=== PATIENT | male | born 1935 | race Hispanic/Latino ===

== ENCOUNTER 2017-09-26 20:37 | Emergency (ER) | payer MEDICARE ==
[2017-09-26] MEDS ORDERED: LIDOCAINE HCL 2% VISCOUS 15 ML UDCUP ONE (21:33)
[2017-09-26] MEDS ORDERED: ACETAMINOPHEN-CODEINE ELIXIR 5 ML UDCUP ONE (21:33)
[2017-09-26] MEDS ORDERED: MAG HYDROX/AL HYDROX/SIMETH ES 30 ML SUSP UDCUP ONE (21:33)
[2017-09-26 22:00] LABS: BASOPHILS % (AUTO) 2.7 % (0.0-5.0); EOSINOPHILS % (AUTO) 0.2 % (0.0-8.0); HEMATOCRIT 28.9 % (42-54); LYMPHOCYTES % (AUTO) 10.9 % (21.0-51.0); MEAN CORPUSCULAR HEMOGLOBIN 38.7 pg (27.0-33.0); MEAN CORPUSCULAR HGB CONC 34.1 g/dL (32.0-36.0); MEAN CORPUSCULAR VOLUME 113.5 fL (79-99); MONOCYTES % (AUTO) 7.4 % (3.0-13.0); NEUTROPHILS % (AUTO) 78.8 % (40.0-77.0); NUCLEATED RED BLOOD CELLS 0.2 % (0.0-0.19); PLATELET COUNT (AUTO) 346 K/uL (130-400); RED BLOOD CELL COUNT(AUTO) 2.54 MIL/uL (4.50-6.20); RED CELL DISTRIBUTION WIDTH 20.8 % (11.0-15.5); WHITE BLOOD COUNT (AUTO) 5.2 K/uL (4.8-10.8)
[2017-09-26 22:08] LABS: CREATININE 0.8 mg/dL (0.5-1.5); POTASSIUM 4.4 mmol/L (3.5-5.1)
[2017-09-26 22:12] LABS: ALBUMIN 3.8 g/dL (3.5-5.0); BILIRUBIN,TOTAL 0.9 mg/dL (0.2-1.0); TOTAL PROTEIN, SERUM 7.6 g/dL (6.0-8.3)
== END 2017-09-26 22:55 | disposition home or self-care (01) ==
LOC: EDH 20:37
DX: K52.9 Noninfective gastroenteritis and colitis, unspecified (principal); Z85.46 Personal history of malignant neoplasm of prostate; Z88.0 Allergy status to penicillin
CPT/HCPCS: 36415; 80053; 85025; 93005

== ENCOUNTER 2017-10-28 10:57 | Emergency (ER) | payer MEDICARE ==
[2017-10-28] MEDS ORDERED: DiphenhydrAMINE HCL 50 MG/ML VIAL ONE (11:54)
[2017-10-28] MEDS ORDERED: DEXAMETHASONE SOD PHOSPHATE 10MG/ML 1ML VIAL ONE (11:54)
== END 2017-10-28 12:52 | disposition home or self-care (01) ==
LOC: EDH 10:57
DX: N48.22 Cellulitis of corpus cavernosum and penis (principal); Z88.0 Allergy status to penicillin; Z85.46 Personal history of malignant neoplasm of prostate; Z87.891 Personal history of nicotine dependence
CPT/HCPCS: 96372 ×2; 99284; J1100; J1200

== ENCOUNTER 2018-01-07 07:14 | Day surgery (SDC) | payer MEDICARE ==
[2018-01-05 16:21] VITALS: BP 113/61
[2018-01-05 16:22] LABS: BASOPHILS % (AUTO) 2.1 % (0.0-5.0); EOSINOPHILS % (AUTO) 1.7 % (0.0-8.0); HEMATOCRIT 24.8 % (42-54); LYMPHOCYTES % (AUTO) 31.4 % (21.0-51.0); MEAN CORPUSCULAR HEMOGLOBIN 37.8 pg (27.0-33.0); MEAN CORPUSCULAR HGB CONC 33.7 g/dL (32.0-36.0); MEAN CORPUSCULAR VOLUME 112.2 fL (79-99); NEUTROPHILS % (AUTO) 56.8 % (40.0-77.0); NUCLEATED RED BLOOD CELLS 0.2 % (0.0-0.19); PLATELET COUNT (AUTO) 280 K/uL (130-400); RED BLOOD CELL COUNT(AUTO) 2.21 MIL/uL (4.50-6.20); RED CELL DISTRIBUTION WIDTH 22.2 % (11.0-15.5); WHITE BLOOD COUNT (AUTO) 4.3 K/uL (4.8-10.8)
[2018-01-05 16:33] LABS: CREATININE 0.8 mg/dL (0.5-1.5); POTASSIUM 4.5 mmol/L (3.5-5.1)
[~2018-01-07] VITALS: Ht 170.2 cm; Wt 74.6 kg
[2018-01-07] VITALS (16 sets, daily range): BP systolic 108–141; BP diastolic 60–77
[2018-01-07] MEDS ORDERED: LACTATED RINGERS 1000ML 1,000 ML IV ONE (07:43)
[2018-01-07] MEDS ORDERED: LEVOFLOXACIN 500 MG/D5W 100 ML 100 ML ONE (07:44)
[2018-01-07] MEDS ORDERED: FENTANYL CITRATE PF 50 MCG/1 ML 2ML VIAL ONE (09:09)
[2018-01-07] MEDS ORDERED: PROPOFOL 10 MG/ML 20ML VIAL IV ONE (09:09)
[2018-01-07] MEDS ORDERED: LIDOCAINE PF 2% 5ML ABBOJECT ONE (09:09)
[2018-01-07] MEDS ORDERED: GLYCOPYRROLATE 1 MG/5 ML SYRINGE ONE (09:18)
[2018-01-07] MEDS ORDERED: LIDOCAINE HCL MPF 1% 5ML VIAL ONE (09:26)
[2018-01-07] MEDS ORDERED: BUPIVACAINE/PF 0.5% 30ML VIAL ONE (09:26)
[2018-01-07] MEDS ORDERED: BACITRACIN 28.4 GM OINT TP ONE (09:39)
== END 2018-01-07 12:04 | disposition home or self-care (01) ==
LOC: DAH 07:14 → SUH 07:14
PROVIDERS: ATTEND Urology
DX: N47.1 Phimosis (principal); Z85.46 Personal history of malignant neoplasm of prostate; Z90.49 Acquired absence of other specified parts of digestive tract; Z98.49 Cataract extraction status, unspecified eye; Z87.891 Personal history of nicotine dependence; Z98.890 Other specified postprocedural states; Z79.899 Other long term (current) drug therapy; Z88.0 Allergy status to penicillin
CPT/HCPCS: 36415; 54161; 80048; 85025; 88304; A4510; A4600; J1956; J2001; J2704; J3010; J3490 ×3; J7120

== ENCOUNTER 2019-02-24 11:29 | Inpatient (IN) | payer MEDICARE ==
[~2019-02-24] VITALS: Ht 172.7 cm; Wt 75.2 kg
[2019-02-24] MEDS ORDERED: LEVOFLOXACIN 500 MG/D5W 100 ML 100 ML IV ONE (13:00)
[2019-02-24] MEDS ORDERED: PHARMACY COMMUNICATION MISC SCH ×2 (13:00→15:45)
[2019-02-24] MEDS ORDERED: VANCOMYCIN 1GM+NS 250ML 250 ML IV SCH ×2 (13:00→14:00)
[2019-02-24] MEDS ORDERED: SODIUM CHLORIDE 0.9% 1000ML 1,000 ML IV ONE (13:19)
[2019-02-24 14:15] VITALS: BP 96/51
[2019-02-24 15:39] LABS: BASOPHILS % (AUTO) 0.3 % (0.0-5.0); HEMATOCRIT 21.6 % (42-54); LYMPHOCYTES % (AUTO) 0.9 % (21.0-51.0); MEAN CORPUSCULAR HEMOGLOBIN 35.6 pg (27.0-33.0); MEAN CORPUSCULAR HGB CONC 32.2 g/dL (32.0-36.0); MEAN CORPUSCULAR VOLUME 110.8 fL (79-99); MONOCYTES % (AUTO) 2.2 % (3.0-13.0); NEUTROPHILS % (AUTO) 96.6 % (40.0-77.0); PLATELET COUNT (AUTO) 208 K/uL (130-400); RED BLOOD CELL COUNT(AUTO) 1.95 MIL/uL (4.50-6.20); RED CELL DISTRIBUTION WIDTH 21.3 % (11.0-15.5); WHITE BLOOD COUNT (AUTO) 24.9 K/uL (4.8-10.8)
[2019-02-24] MEDS ORDERED: VANCOMYCIN PROTOCOL PER PHARMACY IV SCH (15:45)
[2019-02-24 16:00] VITALS: BP 103/48
[2019-02-24 16:11] LABS: CREATININE 1.9 mg/dL (0.5-1.5); POTASSIUM 4.6 mmol/L (3.5-5.1)
[2019-02-24 16:16] LABS: ALBUMIN 2.8 g/dL (3.5-5.0); BILIRUBIN,TOTAL 1.4 mg/dL (0.2-1.0); TOTAL PROTEIN, SERUM 5.6 g/dL (6.0-8.3)
[2019-02-24] MEDS ORDERED: LEVOFLOXACIN 750 MG/D5W 150 ML 150 ML IV SCH ×2 (16:30)
[2019-02-24] MEDS ORDERED: ACETAMINOPHEN 325 MG TAB PO PRN (16:45)
[2019-02-24] MEDS ORDERED: COMPOUND IV REFRIGERATED 1 EACH IVSOLN MISC PRN (16:45)
--- NOTE | 2019-02-24 17:22 | NUR ---
INITIAL MET W FAMILY AND PATIENT- DAUGHTER DORA AND JEWELL LANDERS, HER NUMBER IS ON FACE SHEET, UPDATED PHONE NUMBER OF [facility] AND SENT TO REGISTRATION. PT USES A CANE AND A ROLLATOR, HAS A SHOWER CHAIR, NO PROVIDER SERVICES, HAS A HANDCAPPED BATHROOM PUT IN A FEW YEARS AGO, CURRENTLY WITH ISSUES- FAMILY VERY UPSET ABOUT THE BATHROOM REPAIRS THAT ARE PENDING PT HAS PROSTATE CANCER FOR 20 YEARS- FOLLOWED BY DR. DUMONT, SEES DR. CASH, IS HERE FOR SEPSIS, DC PLANNING DISCUSSED, WILL FOLLOW Addendum: 02/24/19 at 1814 by JIA ROBLEDO RN CM Amended: Links added.
[2019-02-24] MEDS: ACETAMINOPHEN 325 MG TAB PO PRN (17:42)
[2019-02-24] MEDS ORDERED: VANCOMYCIN 1.5 GM in SODIUM CHLORIDE 0.9% 250 ML IV SCH (18:00)
[2019-02-24 19:14] LABS: APPEARANCE,URINE CLOUDY (CLEAR); BILIRUBIN,URINE NEGATIVE (NEGATIVE); COLOR,URINE YELLOW (YELLOW); GLUCOSE, URINE (UA) NEGATIVE (NEGATIVE); KETONES,URINE NEGATIVE (NEGATIVE); LEUKOCYTE ESTERASE ,URINE MODERATE (NEGATIVE); NITRATE,URINE NEGATIVE (NEGATIVE); OCCULT BLOOD,URINE LARGE (NEGATIVE); PROTEIN,URINE 30 mg/dL (NEGATIVE); UROBILINOGEN,URINE 0.2 mg/dL (0.2-1.0)
[2019-02-24 19:24] LABS: BACTERIA,URINE Moderate /HPF (None Seen); MUCUS,URINE Moderate LPF (None Seen)
[2019-02-24 19:25] VITALS: BP 88/67
--- NOTE | 2019-02-24 19:40 | NUR ---
Nursing Note Spoke with lab to see if blood is ready for the pt. Lab stated there is no order in the computer for blood just the type and screen. Kaci KLINE put order in before she left.
[2019-02-24] MEDS ORDERED: SODIUM CHLORIDE 0.9% 500ML 500 ML IV ONE (20:04)
--- NOTE | 2019-02-24 21:00 | NUR ---
Nursing Note Spoke with lab, blood is not ready yet.
--- NOTE | 2019-02-24 21:12 | NUR ---
Nursing Note Informed Dr. Lowery that pt's lactic Acid came down to 2.4. Also informed him that the pt is having diarrhea from the antibiotic. Also informed him that I was still waiting for the blood to be ready to give to the pt. Was given a order for Imodium 2mg now. No other orders at this time.
[2019-02-24] MEDS ORDERED: LOPERAMIDE HCL 2 MG CAP PO ONE (21:28)
[2019-02-24] MEDS: LOPERAMIDE HCL 2 MG CAP PO SCH (21:30)
[2019-02-24] MEDS: SODIUM CHLORIDE 0.9% 1000ML 1,000 ML IV SCH (21:32)
--- NOTE | 2019-02-24 21:40 | NUR ---
nursing note lab stated blood is not ready, they will call when blood is ready
--- NOTE | 2019-02-24 23:00 | NUR ---
nursing note 0253 Called lab they stated blood is ready. Went down to get the blood upon arrival in lab they informed me I needed a blood warmer to give the blood. Got a blood warmer and set up at 2300.
--- NOTE | 2019-02-24 23:00 | NUR ---
NURSING NOTE Pt has had a slight fever. Informed the pt that he needs to take the blankets off of himself but pt continues to put blankets on and turn temperature up in room.
[2019-02-24 23:39] VITALS: BP 86/45
--- NOTE | 2019-02-24 23:45 | NUR ---
NURSING NOTE blood started on pt at 2330. Pt denies any complications at this time. vital signs and pt are being monitored.
--- NOTE | 2019-02-25 | NUR ---
NURSING NOTE pt family member arrived to floor at 2350. pt family member stated "the blood needs to be stopped because the he is swollen." There is no noticeable pt change with my assessment and confirmed with [employer]. Also spoke with pt and pt stated he is fine. Vitals area also constantly stable. Family member is adamant about stopping the blood and calling the doctor. I paused the blood and called the doctor. Spoke with Dr. Lowery at 2355 and informed him of the situation and of all of pt's vitals. He stated to inform the family member that if Dr. Wilkes want's he can start the pt on Lasix but at this time pt vitals are too low but we need to give him the blood. Also stated that it is not up to her to stop the blood and if pt wants to continue then we will continue. I informed the pt and the family member and restarted the blood at 0000.
[2019-02-25] MEDS: ACETAMINOPHEN 325 MG TAB PO PRN ×3 (03:06→19:19)
[2019-02-25 03:20] VITALS: BP 103/46
--- NOTE | 2019-02-25 04:00 | NUR ---
NURSING NOTE Transfusion stopped at 0340. Pt vomiting, pt has continued to have chills but the fever has come down to 100. Spoke with Dr. Lowery informed him of the pt's recent reaction and that I stopped the transfusion. He stated he didn't think it was a transfusion reaction but to stop the transfusion and do the transfusion reaction protocol.
--- NOTE | 2019-02-25 04:05 | NUR ---
NURSING NOTE Informed lab about the reaction and pack blood up in bag. Bag taken down to lab with blood. Pending urine sample from pt at this point.
--- NOTE | 2019-02-25 05:00 | NUR ---
NURSING NOTE pt lying in bed resting. No nausea/vomiting or chills. Pt stated "I'm just sleepy and you wont let me sleep"
[2019-02-25] MEDS ORDERED: CEFEPIME HCL 2 GM VIAL IVP SCH (06:00)
[2019-02-25 08:00] VITALS: BP 85/45
[2019-02-25] MEDS: CEFEPIME HCL 2 GM VIAL IVP SCH ×2 (09:13→16:31)
[2019-02-25] MEDS: FAMOTIDINE/PF 20 MG/2 ML VIAL IV SCH (09:13)
[2019-02-25 09:47] LABS: HEMATOCRIT 23.7 % (42-54); MEAN CORPUSCULAR HGB CONC 33.6 g/dL (32.0-36.0); MEAN CORPUSCULAR VOLUME 107.2 fL (79-99); PLATELET COUNT (AUTO) 129 K/uL (130-400); RED BLOOD CELL COUNT(AUTO) 2.21 MIL/uL (4.50-6.20); RED CELL DISTRIBUTION WIDTH 22.6 % (11.0-15.5); WHITE BLOOD COUNT (AUTO) 10.5 K/uL (4.8-10.8)
[2019-02-25 10:28] LABS: CREATININE 1.6 mg/dL (0.5-1.5); POTASSIUM 4.6 mmol/L (3.5-5.1)
[2019-02-25 11:00] VITALS: BP 72/34
[2019-02-25] MEDS ORDERED: LEVOFLOXACIN 500 MG/D5W 100 ML 100 ML IV SCH (13:00)
[2019-02-25 16:00] VITALS: BP 105/59
[2019-02-25] MEDS: VANCOMYCIN 1GM+NS 250ML 250 ML IV SCH (18:29)
[2019-02-25] MEDS: SODIUM CHLORIDE 0.9% 1000ML 1,000 ML IV SCH ×2 (18:45→20:03)
[2019-02-25 19:42] VITALS: BP 96/56
[2019-02-25] MEDS: LOPERAMIDE HCL 2 MG CAP PO SCH (20:47)
[2019-02-25 23:58] VITALS: BP 104/53
[2019-02-26] MEDS: CEFEPIME HCL 2 GM VIAL IVP SCH ×3 (00:18→17:03)
[2019-02-26 03:19] VITALS: BP 96/56
[2019-02-26] MEDS: SODIUM CHLORIDE 0.9% 1000ML 1,000 ML IV SCH ×2 (04:10→14:45)
[2019-02-26 07:30] VITALS: BP 105/63
[2019-02-26] MEDS: FAMOTIDINE/PF 20 MG/2 ML VIAL IV SCH (08:45)
[2019-02-26 08:54] LABS: HEMATOCRIT 24.4 % (42-54); MEAN CORPUSCULAR HEMOGLOBIN 35.7 pg (27.0-33.0); MEAN CORPUSCULAR HGB CONC 33.3 g/dL (32.0-36.0); MEAN CORPUSCULAR VOLUME 107.3 fL (79-99); PLATELET COUNT (AUTO) 132 K/uL (130-400); RED BLOOD CELL COUNT(AUTO) 2.27 MIL/uL (4.50-6.20); RED CELL DISTRIBUTION WIDTH 22.7 % (11.0-15.5); WHITE BLOOD COUNT (AUTO) 6.7 K/uL (4.8-10.8)
[2019-02-26 09:14] LABS: CREATININE 0.9 mg/dL (0.5-1.5); POTASSIUM 3.9 mmol/L (3.5-5.1)
[2019-02-26] MEDS: ACETAMINOPHEN 325 MG TAB PO PRN (09:20)
[2019-02-26 11:00] VITALS: BP 105/56
[2019-02-26 16:00] VITALS: BP 112/61
[2019-02-26] MEDS: VANCOMYCIN 1GM+NS 250ML 250 ML IV SCH (18:38)
[2019-02-26 19:10] VITALS: BP 105/64
[2019-02-26] MEDS ORDERED: VANCOMYCIN 1GM+NS 250ML 250 ML IV SCH (20:00)
[2019-02-26 23:20] VITALS: BP 118/64
[2019-02-27] MEDS: CEFEPIME HCL 2 GM VIAL IVP SCH ×2 (01:52→08:54)
[2019-02-27] MEDS: ACETAMINOPHEN 325 MG TAB PO PRN (03:05)
[2019-02-27 03:23] VITALS: BP 110/67
[2019-02-27 07:46] VITALS: BP 117/66
[2019-02-27] MEDS: FAMOTIDINE/PF 20 MG/2 ML VIAL IV SCH (08:54)
[2019-02-27] MEDS: SODIUM CHLORIDE 0.9% 1000ML 1,000 ML IV SCH (08:54)
--- NOTE | 2019-02-27 11:00 | NUR ---
PATIENT GIVEN DISCHARGE INSTRUCTIONS AND EDUCATION ON FOLLOW UP APPOINTMENTS. NEW PRESCRIPTIONS CALLED IN BY DR DUMONT. PATIENT VERBALIZED UNDERSTANDING OF ALL EDUCATION GIVEN VIA TEACH BACK. IV DISCONTINUED, CATHETER INTACT. PATIENT LEFT VIA WHEELCHAIR, PCP AT SIDE. NO DISTRESS NOTED UPON DISCHARGE. ALL BELONGINGS TAKEN WITH.
[2019-02-27 11:02] VITALS: BP 113/70
== END 2019-02-27 12:43 | disposition home or self-care (01) | DRG 872 ==
LOC: EDH 11:29 → EDHIP 12:31 → 4CH 14:11
PROVIDERS: ADMIT Internal Medicine Hematology & Oncology; ATTEND Internal Medicine Hematology & Oncology
PROC: 30233N1 Transfusion of Nonautologous Red Blood Cells into Peripheral Vein, Percutaneous Approach (ICD-10-PCS; principal; 2019-02-24)
DX: A41.9 Sepsis, unspecified organism (principal); C79.9 Secondary malignant neoplasm of unspecified site; N39.0 Urinary tract infection, site not specified; C61 Malignant neoplasm of prostate; E86.0 Dehydration; D46.9 Myelodysplastic syndrome, unspecified; D89.9 Disorder involving the immune mechanism, unspecified; F17.200 Nicotine dependence, unspecified, uncomplicated; Z80.42 Family history of malignant neoplasm of prostate; Z82.49 Family history of ischemic heart disease and other diseases of the circulatory system; Z85.46 Personal history of malignant neoplasm of prostate; M19.90 Unspecified osteoarthritis, unspecified site; G62.9 Polyneuropathy, unspecified; Z90.49 Acquired absence of other specified parts of digestive tract; Z98.49 Cataract extraction status, unspecified eye
CPT/HCPCS: 36415; 36430; 71046; 80048; 80053; 80202; 81001; 83605; 85025; 85027; 86078; 86156; 86850; 86870; 86900; 86901; 86922; 87040; 87088; G0378; J0692; J1956; J3370; J3490; J7030; J7040; P9016

== ENCOUNTER 2019-04-22 23:28 | Emergency (ER) | payer MEDICARE ==
[2019-04-23 00:18] LABS: CREATININE 0.3 mg/dL (0.5-1.5); POTASSIUM 4.1 mmol/L (3.5-5.1)
[2019-04-23 00:22] LABS: ALBUMIN 4.1 g/dL (3.5-5.0); BILIRUBIN,TOTAL 1.2 mg/dL (0.2-1.0); TOTAL PROTEIN, SERUM 7.2 g/dL (6.0-8.3)
[2019-04-23] MEDS ORDERED: KETOROLAC TROMETHAMINE 15MG/ML ONE (00:37)
[2019-04-23 00:40] LABS: BASOPHILS % (AUTO) 0.3 % (0.0-5.0); EOSINOPHILS % (AUTO) 0.8 % (0.0-8.0); HEMATOCRIT 28.3 % (42-54); LYMPHOCYTES % (AUTO) 14.5 % (21.0-51.0); MEAN CORPUSCULAR HGB CONC 32.5 g/dL (32.0-36.0); MEAN CORPUSCULAR VOLUME 101.4 fL (79-99); MONOCYTES % (AUTO) 8.4 % (3.0-13.0); NEUTROPHILS % (AUTO) 75.5 % (40.0-77.0); PLATELET COUNT (AUTO) 300 K/uL (130-400); RED BLOOD CELL COUNT(AUTO) 2.79 MIL/uL (4.50-6.20); RED CELL DISTRIBUTION WIDTH 19.2 % (11.0-15.5); WHITE BLOOD COUNT (AUTO) 6.6 K/uL (4.8-10.8)
[2019-04-23 00:55] LABS: INR 0.97 (0.85-1.15); PARTIAL THROMBOPLASTIN TIME 22.2 SEC (26.3-35.5); PROTHROMBIN TIME 10.2 SEC (9.6-11.6)
[2019-04-23 01:43] LABS: APPEARANCE,URINE Clear (CLEAR); BILIRUBIN,URINE Negative (NEGATIVE); COLOR,URINE Yellow (YELLOW); GLUCOSE, URINE (UA) Negative (NEGATIVE); KETONES,URINE Negative (NEGATIVE); LEUKOCYTE ESTERASE ,URINE Negative (NEGATIVE); NITRATE,URINE Negative (NEGATIVE); OCCULT BLOOD,URINE Negative (NEGATIVE); PROTEIN,URINE Negative (NEGATIVE)
[2019-04-23] MEDS ORDERED: TAMSULOSIN HCL 0.4 MG CAP.ER.24H ONE (02:41)
[2019-04-23] MEDS ORDERED: SODIUM CHLORIDE 0.9% 1000ML 1,000 ML IV ONE (02:41)
== END 2019-04-23 04:20 | disposition home or self-care (01) ==
LOC: EDH 23:28
DX: N13.2 Hydronephrosis with renal and ureteral calculous obstruction (principal); D64.9 Anemia, unspecified; M54.5 Low back pain; Z88.0 Allergy status to penicillin; Z85.46 Personal history of malignant neoplasm of prostate; Z90.49 Acquired absence of other specified parts of digestive tract; Z87.891 Personal history of nicotine dependence
CPT/HCPCS: 36415; 71045; 74176; 80053; 81003; 82150; 82550; 83690; 84484; 85025; 85610; 85730; 93005; 96361; 96374; 99285; J1885; J7030

== ENCOUNTER → 2019-10-25 | Outpatient (CLI) | payer MEDICARE | END | disposition home or self-care (01) | LOC: RAH 07:30 | PROVIDERS: ATTEND Internal Medicine Hematology & Oncology | DX: R10.11 Right upper quadrant pain (principal); Z90.49 Acquired absence of other specified parts of digestive tract | CPT/HCPCS: 76700 ==

== ENCOUNTER 2021-09-01 12:00 | Inpatient (IN) | payer MEDICARE ==
[~2021-09-01] VITALS: Ht 165.1 cm; Wt 65.4 kg
[2021-09-01 13:52] LABS: BASOPHILS % (AUTO) 0.9 % (0.0-5.0); EOSINOPHILS % (AUTO) 1.8 % (0.0-8.0); HEMATOCRIT 31.5 % (42-54); LYMPHOCYTES % (AUTO) 33.8 % (21.0-51.0); MEAN CORPUSCULAR HEMOGLOBIN 32.9 pg (27.0-33.0); MEAN CORPUSCULAR HGB CONC 32.4 g/dL (32.0-36.0); MEAN CORPUSCULAR VOLUME 101.6 fL (79-99); MONOCYTES % (AUTO) 12.6 % (3.0-13.0); NEUTROPHILS % (AUTO) 49.6 % (40.0-77.0); PLATELET COUNT (AUTO) 284 K/uL (130-400); RED CELL DISTRIBUTION WIDTH 19.9 % (11.0-15.5); WHITE BLOOD COUNT (AUTO) 4.5 K/uL (4.8-10.8)
[2021-09-01 13:59] LABS: CREATININE 0.6 mg/dL (0.5-1.5); POTASSIUM 4.4 mmol/L (3.5-5.1)
[2021-09-01 14:33] LABS: PROTHROMBIN TIME 10.9 SEC (9.6-11.6)
[2021-09-01 14:35] LABS: PARTIAL THROMBOPLASTIN TIME 29.1 SEC (26.3-35.5)
[2021-09-02] MEDS ORDERED: ACET-66 PO (10:34)
[2021-09-02] MEDS ORDERED: LEVOFLOXACIN 750 MG/D5W 150 ML 150 ML IV SCH (11:30)
[2021-09-03] VITALS (17 sets, daily range): BP systolic 108–152; BP diastolic 63–81
[2021-09-03] MEDS ORDERED: LACTATED RINGERS 1000ML 1,000 ML IV ONE (08:20)
[2021-09-03] MEDS ORDERED: PROPOFOL 10 MG/ML 20ML VIAL IV ONE (08:36)
[2021-09-03] MEDS ORDERED: ROCURONIUM 10MG/1ML SYR 10 MG/ML ML ONE (08:36)
[2021-09-03] MEDS ORDERED: GLYCOPYRROLATE 1 MG/5 ML SYRINGE ONE (08:36)
[2021-09-03] MEDS ORDERED: LIDOCAINE PF 100MG/5ML (2%) SYRINGE 5ML ONE (08:36)
[2021-09-03] MEDS: METRONIDAZOLE 500MG/100ML BAG 100 ML IVPB SCH ×3 (09:00→23:30)
[2021-09-03] MEDS ORDERED: FAMOTIDINE 20MG VIAL IV ONE (09:42)
[2021-09-03] MEDS ORDERED: MORPHINE 2 MG SYG ONE (09:43)
[2021-09-03] MEDS ORDERED: AMIT10TA7 PO (10:11)
[2021-09-03] MEDS ORDERED: LEUP22.52 IM (10:11)
[2021-09-03] MEDS ORDERED: CYCLOBENZAPRINE PO (10:11)
[2021-09-03] MEDS ORDERED: BICA50TA7 PO (10:11)
[2021-09-03] MEDS ORDERED: [UNRECOGNIZED DRUG - CODE] IJ (10:11)
[2021-09-03] MEDS ORDERED: FENTANYL CITRATE PF 50 MCG/1 ML 2ML VIAL ONE ×3 (10:16→11:15)
[2021-09-03] MEDS ORDERED: ONDANSETRON 4MG INJ ONE (10:20)
[2021-09-03] MEDS ORDERED: METOPROLOL TARTRATE 1 MG/ML 5ML VIAL IV ONE (10:43)
[2021-09-03] MEDS ORDERED: LIDOCAINE HCL 1% 20 ML VIAL ONE (13:11)
[2021-09-03] MEDS ORDERED: BUPIVACAINE/EPI/PF 0.5% 30ML VIAL IJ ONE (13:11)
[2021-09-03] MEDS ORDERED: NEOSTIGMINE 5MG/5ML SYR IV ONE (13:22)
[2021-09-03] MEDS ORDERED: MEPERIDINE-PF 25 MG/ML SYG ONE ×2 (14:06→14:15)
[2021-09-03] MEDS: HYDROMORPHONE 0.5 MG SYG (0.5MG/0.5ML) IVP PRN (16:15)
[2021-09-03] MEDS: KETOROLAC 15MG/ML VIAL (15MG/ML) IV SCH ×2 (17:22→23:30)
[2021-09-03] MEDS: D5W-1/2 NS/20MEQ KCL 1,000 ML IV SCH (18:20)
[2021-09-03] MEDS ORDERED: ONDANSETRON 4MG INJ IVP PRN (19:30)
[2021-09-03] MEDS ORDERED: IPRATROPIUM 0.5 MG/2.5 ML INH IH PRN (20:30)
[2021-09-03] MEDS: FAMOTIDINE 20MG VIAL IV SCH (23:30)
[2021-09-04] VITALS: BP 109/74
[2021-09-04] MEDS: HYDROMORPHONE 0.5 MG SYG (0.5MG/0.5ML) IVP PRN ×3 (03:31→21:14)
[2021-09-04] MEDS: D5W-1/2 NS/20MEQ KCL 1,000 ML IV SCH (03:32)
[2021-09-04 05:25] LABS: BASOPHILS % (AUTO) 0.2 % (0.0-5.0); HEMATOCRIT 26.2 % (42-54); LYMPHOCYTES % (AUTO) 3.6 % (21.0-51.0); MEAN CORPUSCULAR HEMOGLOBIN 31.3 pg (27.0-33.0); MEAN CORPUSCULAR HGB CONC 31.3 g/dL (32.0-36.0); MONOCYTES % (AUTO) 11.7 % (3.0-13.0); NEUTROPHILS % (AUTO) 83.1 % (40.0-77.0); NUCLEATED RED BLOOD CELLS 0.2 % (0.0-0.19); PLATELET COUNT (AUTO) 286 K/uL (130-400); RED BLOOD CELL COUNT(AUTO) 2.62 MIL/uL (4.50-6.20); RED CELL DISTRIBUTION WIDTH 19.2 % (11.0-15.5); WHITE BLOOD COUNT (AUTO) 18.7 K/uL (4.8-10.8)
[2021-09-04] MEDS: METRONIDAZOLE 500MG/100ML BAG 100 ML IVPB SCH ×3 (05:41→21:04)
[2021-09-04] MEDS: KETOROLAC 15MG/ML VIAL (15MG/ML) IV SCH (05:42)
[2021-09-04 05:52] LABS: BILIRUBIN,TOTAL 1.4 mg/dL (0.2-1.0); CREATININE 1.6 mg/dL (0.5-1.5); MAGNESIUM 1.6 mg/dL (1.80-2.40); POTASSIUM 5.6 mmol/L (3.5-5.1); TOTAL PROTEIN, SERUM 6.4 g/dL (6.0-8.3)
[2021-09-04 07:30] VITALS: BP 100/74
[2021-09-04] MEDS: FAMOTIDINE 20MG VIAL IV SCH ×2 (08:05→21:04)
[2021-09-04] MEDS: ENOXAPARIN SODIUM 30 MG/0.3 ML SQ SCH (08:11)
[2021-09-04] MEDS: IODOSORB GEL 40GM TP SCH (09:00)
[2021-09-04 09:20] LABS: CREATININE 1.7 mg/dL (0.5-1.5)
[2021-09-04 09:25] LABS: POTASSIUM 6.1 mmol/L (3.5-5.1)
[2021-09-04] MEDS ORDERED: LEVOFLOXACIN 750 MG/D5W 150 ML 150 ML IV SCH (10:00)
[2021-09-04] MEDS ORDERED: DEXTROSE 50%-WATER 50 ML DISP.SYRIN IV SCH (10:00)
[2021-09-04] MEDS ORDERED: INSULIN HUMULIN R 100 UNIT/ML 3ML IV SCH (10:00)
[2021-09-04] MEDS ORDERED: CALCIUM GLUC 1GM/10ML VIAL IVPB SCH (10:00)
[2021-09-04] MEDS ORDERED: SODIUM BICARB 50MEQ 50ML VIAL IV SCH (10:00)
[2021-09-04] MEDS: DEXTROSE 5 % AND 0.9 % NACL 1,000 ML IV SCH ×2 (10:23→23:47)
[2021-09-04] MEDS ORDERED: CALCIUM GLUC 1GM 1 GM in 0.9%NACL 100ML 100 ML IV SCH (10:30)
[2021-09-04 11:00] VITALS: BP 110/62
[2021-09-04] MEDS: LEVOFLOXACIN 750 MG/D5W 150 ML 150 ML IV SCH (11:37)
[2021-09-04 13:24] LABS: CREATININE 1.7 mg/dL (0.5-1.5)
[2021-09-04 13:43] LABS: % IRON SATURATION 14.2 % (30-44)
[2021-09-04] MEDS ORDERED: METRONIDAZOLE 500MG/100ML BAG 100 ML IVPB SCH (14:00)
[2021-09-04 14:09] LABS: APPEARANCE,URINE Cloudy (CLEAR); BILIRUBIN,URINE Small (NEGATIVE); COLOR,URINE Dark Yellow (YELLOW); GLUCOSE, URINE (UA) TRACE mg/dL (NEGATIVE); KETONES,URINE Negative (NEGATIVE); LEUKOCYTE ESTERASE ,URINE Negative (NEGATIVE); NITRATE,URINE Negative (NEGATIVE); OCCULT BLOOD,URINE Small (NEGATIVE); PROTEIN,URINE POS 1+ mg/dL (NEGATIVE)
[2021-09-04 14:26] LABS: AMORPHOUS SEDIMENT,UR Few /LPF (None Seen); BACTERIA,URINE Few /HPF (None Seen); MUCUS,URINE Few LPF (None Seen); SQUAMOUS EPITHELIAL CELL,UR Few /HPF (0-2)
[2021-09-04 16:00] VITALS: BP 102/71
[2021-09-05 00:36] VITALS: BP 126/63
[2021-09-05 04:45] VITALS: BP 134/52
[2021-09-05 05:44] LABS: BASOPHILS % (AUTO) 0.2 % (0.0-5.0); LYMPHOCYTES % (AUTO) 5.4 % (21.0-51.0); MEAN CORPUSCULAR HEMOGLOBIN 32.1 pg (27.0-33.0); MEAN CORPUSCULAR HGB CONC 32.4 g/dL (32.0-36.0); MEAN CORPUSCULAR VOLUME 98.9 fL (79-99); MONOCYTES % (AUTO) 10.2 % (3.0-13.0); NEUTROPHILS % (AUTO) 82.9 % (40.0-77.0); PLATELET COUNT (AUTO) 220 K/uL (130-400); RED BLOOD CELL COUNT(AUTO) 1.87 MIL/uL (4.50-6.20); RED CELL DISTRIBUTION WIDTH 19.9 % (11.0-15.5)
[2021-09-05 06:03] LABS: CREATININE 1.1 mg/dL (0.5-1.5); MAGNESIUM 1.6 mg/dL (1.80-2.40); POTASSIUM 3.8 mmol/L (3.5-5.1)
[2021-09-05 06:22] LABS: HEMATOCRIT 18.5 % (42-54)
[2021-09-05] MEDS: METRONIDAZOLE 500MG/100ML BAG 100 ML IVPB SCH ×3 (07:20→21:16)
[2021-09-05 07:30] VITALS: BP 108/61
[2021-09-05] MEDS: IODOSORB GEL 40GM TP SCH (09:00)
[2021-09-05] MEDS: FAMOTIDINE 20MG VIAL IV SCH ×2 (09:32→21:14)
[2021-09-05] MEDS: ENOXAPARIN SODIUM 30 MG/0.3 ML SQ SCH (09:33)
[2021-09-05 10:49] LABS: HEMATOCRIT 19.6 % (42-54)
[2021-09-05 11:00] VITALS: BP 127/63
[2021-09-05] MEDS: LEVOFLOXACIN 750 MG/D5W 150 ML 150 ML IV SCH (12:36)
[2021-09-05] MEDS: IRON SUCROSE COMPLEX 100 MG/5 ML VIAL IVP SCH (12:38)
[2021-09-05] MEDS: DEXTROSE 5 % AND 0.9 % NACL 1,000 ML IV SCH ×3 (13:44→21:18)
[2021-09-05] MEDS ORDERED: 0.9% NACL 500ML IV.SOLN 500 ML IV ONE (16:00)
[2021-09-05 20:04] VITALS: BP 124/73
[2021-09-05 21:21] LABS: HEMATOCRIT 21.7 % (42-54)
[2021-09-05 22:30] VITALS: BP 121/58
[2021-09-06 00:04] VITALS: BP 120/65
[2021-09-06] MEDS: DEXTROSE 5 % AND 0.9 % NACL 1,000 ML IV SCH ×3 (02:15→19:07)
[2021-09-06 04:04] VITALS: BP 122/63
[2021-09-06] MEDS: METRONIDAZOLE 500MG/100ML BAG 100 ML IVPB SCH ×2 (04:40→15:43)
[2021-09-06 05:39] LABS: BASOPHILS % (AUTO) 0.3 % (0.0-5.0); EOSINOPHILS % (AUTO) 0.9 % (0.0-8.0); HEMATOCRIT 21.3 % (42-54); LYMPHOCYTES % (AUTO) 6.3 % (21.0-51.0); MEAN CORPUSCULAR HEMOGLOBIN 31.6 pg (27.0-33.0); MEAN CORPUSCULAR HGB CONC 31.9 g/dL (32.0-36.0); MEAN CORPUSCULAR VOLUME 99.1 fL (79-99); MONOCYTES % (AUTO) 9.1 % (3.0-13.0); NEUTROPHILS % (AUTO) 81.9 % (40.0-77.0); NUCLEATED RED BLOOD CELLS 0.3 % (0.0-0.19); PLATELET COUNT (AUTO) 259 K/uL (130-400); RED BLOOD CELL COUNT(AUTO) 2.15 MIL/uL (4.50-6.20); RED CELL DISTRIBUTION WIDTH 19.1 % (11.0-15.5); WHITE BLOOD COUNT (AUTO) 6.8 K/uL (4.8-10.8)
[2021-09-06 08:00] VITALS: BP 130/70
[2021-09-06] MEDS: IRON SUCROSE COMPLEX 100 MG/5 ML VIAL IVP SCH (08:56)
[2021-09-06] MEDS: FAMOTIDINE 20MG VIAL IV SCH ×2 (08:56→21:56)
[2021-09-06] MEDS ORDERED: IRON SUCROSE COMPLEX 100 MG in 0.9%NACL 50ML 50 ML IV SCH (09:00)
[2021-09-06] MEDS: LEVOFLOXACIN 750 MG/D5W 150 ML 150 ML IV SCH (11:30)
[2021-09-06 12:00] VITALS: BP 139/71
[2021-09-06] MEDS: ACETAMINOPHEN 325 MG TAB PO PRN (15:47)
[2021-09-06 16:00] VITALS: BP 135/80
[2021-09-06 20:00] VITALS: BP 129/68
[2021-09-06] MEDS: HYDROMORPHONE 0.5 MG SYG (0.5MG/0.5ML) IVP PRN (20:05)
[2021-09-06] MEDS: IODOSORB GEL 40GM TP SCH (21:57)
[2021-09-07] VITALS: BP 152/71
[2021-09-07] MEDS: METRONIDAZOLE 500MG/100ML BAG 100 ML IVPB SCH ×5 (00:08→22:53)
[2021-09-07] MEDS: DEXTROSE 5 % AND 0.9 % NACL 1,000 ML IV SCH ×3 (02:49→19:07)
[2021-09-07 04:00] VITALS: BP 126/65
[2021-09-07 05:34] LABS: BASOPHILS % (AUTO) 0.4 % (0.0-5.0); EOSINOPHILS % (AUTO) 4.7 % (0.0-8.0); HEMATOCRIT 25.6 % (42-54); LYMPHOCYTES % (AUTO) 10.7 % (21.0-51.0); MEAN CORPUSCULAR HEMOGLOBIN 30.9 pg (27.0-33.0); MEAN CORPUSCULAR HGB CONC 32.4 g/dL (32.0-36.0); MEAN CORPUSCULAR VOLUME 95.2 fL (79-99); MONOCYTES % (AUTO) 12.2 % (3.0-13.0); NEUTROPHILS % (AUTO) 69.6 % (40.0-77.0); PLATELET COUNT (AUTO) 256 K/uL (130-400); RED BLOOD CELL COUNT(AUTO) 2.69 MIL/uL (4.50-6.20); WHITE BLOOD COUNT (AUTO) 4.7 K/uL (4.8-10.8)
[2021-09-07 05:48] LABS: CREATININE 0.7 mg/dL (0.5-1.5); POTASSIUM 3.7 mmol/L (3.5-5.1)
[2021-09-07 08:00] VITALS: BP 120/64
[2021-09-07] MEDS: FAMOTIDINE 20MG VIAL IV SCH ×2 (08:42→20:40)
[2021-09-07] MEDS: IRON SUCROSE COMPLEX 100 MG/5 ML VIAL IVP SCH (08:42)
[2021-09-07] MEDS: IODOSORB GEL 40GM TP SCH (08:43)
[2021-09-07] MEDS: LEVOFLOXACIN 750 MG/D5W 150 ML 150 ML IV SCH (11:57)
[2021-09-07 12:00] VITALS: BP 113/57
[2021-09-07 16:00] VITALS: BP 125/59
[2021-09-07 19:15] VITALS: BP 141/61
[2021-09-07] MEDS: HYDROMORPHONE 0.5 MG SYG (0.5MG/0.5ML) IVP PRN (20:40)
[2021-09-08 00:28] VITALS: BP 139/66
[2021-09-08] MEDS: DEXTROSE 5 % AND 0.9 % NACL 1,000 ML IV SCH ×4 (03:16→22:48)
[2021-09-08 04:28] VITALS: BP 146/64
[2021-09-08 05:10] LABS: BASOPHILS % (AUTO) 0.2 % (0.0-5.0); EOSINOPHILS % (AUTO) 7.7 % (0.0-8.0); HEMATOCRIT 24.8 % (42-54); LYMPHOCYTES % (AUTO) 17.2 % (21.0-51.0); MEAN CORPUSCULAR HEMOGLOBIN 31.8 pg (27.0-33.0); MEAN CORPUSCULAR HGB CONC 33.1 g/dL (32.0-36.0); MEAN CORPUSCULAR VOLUME 96.1 fL (79-99); NEUTROPHILS % (AUTO) 64.4 % (40.0-77.0); PLATELET COUNT (AUTO) 226 K/uL (130-400); RED BLOOD CELL COUNT(AUTO) 2.58 MIL/uL (4.50-6.20); RED CELL DISTRIBUTION WIDTH 18.4 % (11.0-15.5)
[2021-09-08 05:35] LABS: ALBUMIN 2.3 g/dL (3.5-5.0); BILIRUBIN,TOTAL 0.7 mg/dL (0.2-1.0); CREATININE 0.6 mg/dL (0.5-1.5); MAGNESIUM 1.6 mg/dL (1.80-2.40); TOTAL PROTEIN, SERUM 5.5 g/dL (6.0-8.3)
[2021-09-08] MEDS: METRONIDAZOLE 500MG/100ML BAG 100 ML IVPB SCH ×3 (06:03→22:48)
[2021-09-08] MEDS: HYDROMORPHONE 0.5 MG SYG (0.5MG/0.5ML) IVP PRN ×2 (06:34→11:54)
[2021-09-08 07:00] VITALS: BP 117/66
[2021-09-08] MEDS: IODOSORB GEL 40GM TP SCH (09:00)
[2021-09-08] MEDS: MAGNESIUM 2GM PREMIX 50ML 50 ML IV SCH (09:12)
[2021-09-08] MEDS: IRON SUCROSE COMPLEX 100 MG/5 ML VIAL IVP SCH (09:12)
[2021-09-08] MEDS: FAMOTIDINE 20MG VIAL IV SCH ×2 (09:12→20:59)
[2021-09-08] MEDS ORDERED: POTASSIUM CHLORIDE 10% ELIXIR 20 MEQ/15 ML UDCUP PO PRN (11:00)
[2021-09-08] MEDS ORDERED: POTASSIUM CHLORIDE 20MEQ/100ML 100 ML IV PRN (11:00)
[2021-09-08] MEDS ORDERED: LIDOCAINE HCL-MPF 1% 2ML VIAL IV PRN (11:00)
[2021-09-08 11:38] VITALS: BP 126/56
[2021-09-08] MEDS: LEVOFLOXACIN 750 MG/D5W 150 ML 150 ML IV SCH (15:25)
[2021-09-08 16:00] VITALS: BP 131/78
[2021-09-08 19:59] VITALS: BP 121/75
[2021-09-08] MEDS: KCL 20 MEQ ERTAB PO PRN ×2 (21:11→23:18)
[2021-09-08] MEDS: ACETAMINOPHEN 325 MG TAB PO PRN (21:12)
[2021-09-08] MEDS ORDERED: HYDROMORPHONE 0.5 MG SYG (0.5MG/0.5ML) ONE (23:16)
[2021-09-09] VITALS (7 sets, daily range): BP systolic 121–149; BP diastolic 62–85
[2021-09-09] MEDS: KCL 20 MEQ ERTAB PO PRN ×4 (01:28→20:44)
[2021-09-09] MEDS: METRONIDAZOLE 500MG/100ML BAG 100 ML IVPB SCH ×3 (05:02→20:38)
[2021-09-09] MEDS: ACETAMINOPHEN 325 MG TAB PO PRN (05:13)
[2021-09-09 05:26] LABS: ALBUMIN 2.4 g/dL (3.5-5.0); BILIRUBIN,TOTAL 0.7 mg/dL (0.2-1.0); CREATININE 0.6 mg/dL (0.5-1.5); MAGNESIUM 1.8 mg/dL (1.80-2.40); POTASSIUM 3.4 mmol/L (3.5-5.1); TOTAL PROTEIN, SERUM 5.5 g/dL (6.0-8.3)
[2021-09-09] MEDS: MAGNESIUM 2GM PREMIX 50ML 50 ML IV SCH (05:52)
[2021-09-09] MEDS: FAMOTIDINE 20MG VIAL IV SCH ×2 (07:12→20:38)
[2021-09-09] MEDS: IRON SUCROSE COMPLEX 100 MG/5 ML VIAL IVP SCH (07:12)
[2021-09-09] MEDS: IODOSORB GEL 40GM TP SCH (09:20)
[2021-09-09] MEDS: LEVOFLOXACIN 750 MG/D5W 150 ML 150 ML IV SCH (11:39)
[2021-09-09] MEDS ORDERED: POLYETHYLENE GLYCOL 3350 17 GM POWD.PACK PO SCH (13:30)
[2021-09-09] MEDS: HYDROMORPHONE 0.5 MG SYG (0.5MG/0.5ML) IVP PRN (20:44)
[2021-09-10] MEDS: HYDROMORPHONE 0.5 MG SYG (0.5MG/0.5ML) IVP PRN ×3 (00:18→22:38)
[2021-09-10 03:25] VITALS: BP 123/69
[2021-09-10 04:30] LABS: BASOPHILS % (AUTO) 0.3 % (0.0-5.0); EOSINOPHILS % (AUTO) 4.1 % (0.0-8.0); HEMATOCRIT 27.5 % (42-54); LYMPHOCYTES % (AUTO) 12.2 % (21.0-51.0); MEAN CORPUSCULAR HEMOGLOBIN 31.7 pg (27.0-33.0); MEAN CORPUSCULAR HGB CONC 32.7 g/dL (32.0-36.0); MEAN CORPUSCULAR VOLUME 96.8 fL (79-99); MONOCYTES % (AUTO) 7.2 % (3.0-13.0); NEUTROPHILS % (AUTO) 74.9 % (40.0-77.0); PLATELET COUNT (AUTO) 216 K/uL (130-400); RED BLOOD CELL COUNT(AUTO) 2.84 MIL/uL (4.50-6.20); RED CELL DISTRIBUTION WIDTH 17.2 % (11.0-15.5); WHITE BLOOD COUNT (AUTO) 7.6 K/uL (4.8-10.8)
[2021-09-10 05:03] LABS: CREATININE 0.5 mg/dL (0.5-1.5); MAGNESIUM 1.9 mg/dL (1.80-2.40)
[2021-09-10] MEDS: METRONIDAZOLE 500MG/100ML BAG 100 ML IVPB SCH ×3 (05:36→22:38)
[2021-09-10] MEDS: MAGNESIUM 2GM PREMIX 50ML 50 ML IV SCH (06:50)
[2021-09-10 07:28] VITALS: BP 137/72
[2021-09-10] MEDS: IRON SUCROSE COMPLEX 100 MG/5 ML VIAL IVP SCH (08:55)
[2021-09-10] MEDS: FAMOTIDINE 20MG VIAL IV SCH ×2 (08:55→22:38)
[2021-09-10] MEDS: IODOSORB GEL 40GM TP SCH (09:00)
[2021-09-10 11:24] VITALS: BP 123/63
[2021-09-10] MEDS: LEVOFLOXACIN 750 MG/D5W 150 ML 150 ML IV SCH (13:23)
[2021-09-10 16:00] VITALS: BP 132/73
[2021-09-10 20:00] VITALS: BP 139/62
[2021-09-10 23:51] VITALS: BP 120/67
[2021-09-11 04:00] VITALS: BP 114/69
[2021-09-11 05:13] LABS: BASOPHILS % (AUTO) 0.2 % (0.0-5.0); EOSINOPHILS % (AUTO) 1.2 % (0.0-8.0); HEMATOCRIT 29.9 % (42-54); LYMPHOCYTES % (AUTO) 7.5 % (21.0-51.0); MEAN CORPUSCULAR HEMOGLOBIN 30.4 pg (27.0-33.0); MEAN CORPUSCULAR HGB CONC 31.1 g/dL (32.0-36.0); MEAN CORPUSCULAR VOLUME 97.7 fL (79-99); MONOCYTES % (AUTO) 5.5 % (3.0-13.0); NEUTROPHILS % (AUTO) 84.1 % (40.0-77.0); PLATELET COUNT (AUTO) 230 K/uL (130-400); RED BLOOD CELL COUNT(AUTO) 3.06 MIL/uL (4.50-6.20); RED CELL DISTRIBUTION WIDTH 17.2 % (11.0-15.5); WHITE BLOOD COUNT (AUTO) 12.6 K/uL (4.8-10.8)
[2021-09-11 05:25] LABS: CREATININE 0.5 mg/dL (0.5-1.5); POTASSIUM 4.1 mmol/L (3.5-5.1)
[2021-09-11] MEDS: METRONIDAZOLE 500MG/100ML BAG 100 ML IVPB SCH ×3 (06:06→19:42)
[2021-09-11] MEDS: HYDROMORPHONE 0.5 MG SYG (0.5MG/0.5ML) IVP PRN (06:20)
[2021-09-11 08:00] VITALS: BP 118/72
[2021-09-11] MEDS ORDERED: ACETAMINOPHEN WITH CODEINE 1 TAB TAB PO PRN (08:00)
[2021-09-11] MEDS: IRON SUCROSE COMPLEX 100 MG/5 ML VIAL IVP SCH (08:36)
[2021-09-11] MEDS: FAMOTIDINE 20MG VIAL IV SCH ×2 (08:36→19:42)
[2021-09-11 12:00] VITALS: BP 117/69
[2021-09-11] MEDS: LEVOFLOXACIN 750 MG/D5W 150 ML 150 ML IV SCH (12:52)
[2021-09-11 15:52] VITALS: BP 116/68
[2021-09-11] MEDS: ACETAMINOPHEN WITH CODEINE 1 TAB TAB PO PRN (17:55)
[2021-09-11 20:00] VITALS: BP 112/70
[2021-09-12] VITALS: BP 121/65
[2021-09-12 04:00] VITALS: BP 120/69
[2021-09-12] MEDS: METRONIDAZOLE 500MG/100ML BAG 100 ML IVPB SCH (04:24)
[2021-09-12 05:24] LABS: BASOPHILS % (AUTO) 0.3 % (0.0-5.0); EOSINOPHILS % (AUTO) 1.5 % (0.0-8.0); HEMATOCRIT 28.7 % (42-54); LYMPHOCYTES % (AUTO) 8.1 % (21.0-51.0); MEAN CORPUSCULAR HEMOGLOBIN 30.8 pg (27.0-33.0); MEAN CORPUSCULAR HGB CONC 31.7 g/dL (32.0-36.0); MEAN CORPUSCULAR VOLUME 97.3 fL (79-99); MONOCYTES % (AUTO) 6.2 % (3.0-13.0); NEUTROPHILS % (AUTO) 81.1 % (40.0-77.0); PLATELET COUNT (AUTO) 227 K/uL (130-400); RED BLOOD CELL COUNT(AUTO) 2.95 MIL/uL (4.50-6.20); RED CELL DISTRIBUTION WIDTH 17.1 % (11.0-15.5); WHITE BLOOD COUNT (AUTO) 10.4 K/uL (4.8-10.8)
[2021-09-12 08:00] VITALS: BP 116/71
[2021-09-12] MEDS: IRON SUCROSE COMPLEX 100 MG/5 ML VIAL IVP SCH (08:51)
[2021-09-12] MEDS: FAMOTIDINE 20MG VIAL IV SCH (08:51)
[2021-09-12] MEDS: ACETAMINOPHEN WITH CODEINE 1 TAB TAB PO PRN (10:14)
[2021-09-12] MEDS ORDERED: METR-172 PO (10:56)
[2021-09-12] MEDS ORDERED: LACT1CAP65 PO (10:56)
[2021-09-12 12:00] VITALS: BP 121/69
[2021-09-12 15:57] VITALS: BP 97/52
== END 2021-09-12 19:14 | disposition home or self-care (01) | DRG 336 ==
LOC: EDSTATUS 12:00 → DAHIP 09-03 07:45 → 3BH 09-03 15:40
PROVIDERS: ADMIT Surgery; ATTEND Surgery
PROC: 0DNW0ZZ Release Peritoneum, Open Approach (ICD-10-PCS; 2021-09-03)
PROC: 0DSN0ZZ Reposition Sigmoid Colon, Open Approach (ICD-10-PCS; principal; 2021-09-03 09:46)
PROC: 0DNU0ZZ Release Omentum, Open Approach (ICD-10-PCS; 2021-09-03 09:46)
PROC: 30233N1 Transfusion of Nonautologous Red Blood Cells into Peripheral Vein, Percutaneous Approach (ICD-10-PCS; 2021-09-06)
DX: K66.0 Peritoneal adhesions (postprocedural) (postinfection) (principal); C18.7 Malignant neoplasm of sigmoid colon; N17.9 Acute kidney failure, unspecified; C79.51 Secondary malignant neoplasm of bone; E44.0 Moderate protein-calorie malnutrition; D62 Acute posthemorrhagic anemia; Z93.3 Colostomy status; C61 Malignant neoplasm of prostate; D46.9 Myelodysplastic syndrome, unspecified; E11.9 Type 2 diabetes mellitus without complications; E87.5 Hyperkalemia; I10 Essential (primary) hypertension; Z85.46 Personal history of malignant neoplasm of prostate; Z85.038 Personal history of other malignant neoplasm of large intestine; Z20.822 Contact with and (suspected) exposure to COVID-19; R54 Age-related physical debility; Z88.0 Allergy status to penicillin; Z68.24 Body mass index [BMI] 24.0-24.9, adult; E87.8 Other disorders of electrolyte and fluid balance, not elsewhere classified
CPT/HCPCS: 36415; 36430; 71045; 74018; 74176; 80048; 80053; 81001; 82948; 83540; 83550; 83735; 85014; 85018; 85025; 85610; 85730; 86156; 86850; 86870; 86900; 86901; 86922; 87088; 87635; 93005; 97039; A4344; G0378; J0610; J1170; J1650; J1756; J1815; J1885; J1956; J2001; J2175; J2405; J2704; J2710; J3010; J3475; J3480; J3490; J7040; J7042; J7070; J7120; P9016

== ENCOUNTER 2021-09-18 00:55 | Inpatient (IN) | payer MEDICARE ==
[2021-09-18] VITALS (8 sets, daily range): BP systolic 104–147; BP diastolic 63–78
[~2021-09-18] VITALS: Ht 165.1 cm; Wt 63.0 kg
[~2021-09-18 00:55] MED LIST: ACET-66 PO; AMIT10TA7 PO; BICA50TA7 PO; CYCLOBENZAPRINE PO; LACT1CAP65 PO; LEUP22.52 IM; METR-172 PO; [UNRECOGNIZED DRUG - CODE] IJ
[2021-09-18] MEDS ORDERED: NYST15PO4 TP (02:20)
[2021-09-18] MEDS ORDERED: DICL100G32 TP (02:20)
[2021-09-18] MEDS ORDERED: FOLI0.4T6 PO (02:40)
[2021-09-18] MEDS ORDERED: MEGE20TA3 PO (02:40)
[2021-09-18] MEDS ORDERED: CYCL-309 PO (02:43)
[2021-09-18] MEDS ORDERED: ONDANSETRON 4MG INJ IV PRN (03:00)
[2021-09-18] MEDS ORDERED: MORPHINE 4 MG SYG IV PRN (03:00)
[2021-09-18 03:16] LABS: APPEARANCE,URINE Clear (CLEAR); BILIRUBIN,URINE Negative (NEGATIVE); COLOR,URINE Yellow (YELLOW); GLUCOSE, URINE (UA) Negative (NEGATIVE); KETONES,URINE Negative (NEGATIVE); LEUKOCYTE ESTERASE ,URINE Negative (NEGATIVE); NITRATE,URINE Negative (NEGATIVE); OCCULT BLOOD,URINE Negative (NEGATIVE); PROTEIN,URINE Negative (NEGATIVE); UROBILINOGEN,URINE 0.2 mg/dL (0.2-1.0)
[2021-09-18] MEDS: 0.9%NACL 1000ML 1,000 ML IV SCH ×3 (03:25→21:56)
[2021-09-18] MEDS: LEVOFLOXACIN 500 MG/D5W 100 ML 100 ML IV SCH (03:27)
[2021-09-18 04:59] LABS: BASOPHILS % (AUTO) 0.3 % (0.0-5.0); HEMATOCRIT 25.7 % (42-54); LYMPHOCYTES % (AUTO) 15.9 % (21.0-51.0); MEAN CORPUSCULAR HEMOGLOBIN 30.1 pg (27.0-33.0); MEAN CORPUSCULAR HGB CONC 31.9 g/dL (32.0-36.0); MEAN CORPUSCULAR VOLUME 94.5 fL (79-99); MONOCYTES % (AUTO) 7.2 % (3.0-13.0); NEUTROPHILS % (AUTO) 70.7 % (40.0-77.0); NUCLEATED RED BLOOD CELLS 0.5 % (0.0-0.19); PLATELET COUNT (AUTO) 284 K/uL (130-400); RED BLOOD CELL COUNT(AUTO) 2.72 MIL/uL (4.50-6.20); RED CELL DISTRIBUTION WIDTH 17.1 % (11.0-15.5); WHITE BLOOD COUNT (AUTO) 6.1 K/uL (4.8-10.8)
[2021-09-18 05:11] LABS: INR 1.06 (0.85-1.15); PROTHROMBIN TIME 11.5 SEC (9.6-11.6)
[2021-09-18 05:17] LABS: ALBUMIN 2.5 g/dL (3.5-5.0); BILIRUBIN,TOTAL 0.7 mg/dL (0.2-1.0); CREATININE 0.6 mg/dL (0.5-1.5); MAGNESIUM 1.7 mg/dL (1.80-2.40); PHOSPHORUS 3.1 mg/dL (2.5-4.9); TOTAL PROTEIN, SERUM 6.1 g/dL (6.0-8.3)
[2021-09-18 05:34] LABS: POTASSIUM 2.6 mmol/L (3.5-5.1)
[2021-09-18] MEDS: METRONIDAZOLE 500MG/100ML BAG 100 ML IVPB SCH ×3 (06:03→21:37)
[2021-09-18] MEDS ORDERED: BALSAM PERU/CASTOR OIL 60 GM TUBE TP SCH (09:00)
[2021-09-18] MEDS: NYSTATIN 15 GM POWDER TP SCH ×3 (09:00→22:00)
[2021-09-18] MEDS: FAMOTIDINE 20MG VIAL IV SCH (09:02)
[2021-09-18] MEDS: POTASSIUM CHLORIDE 20MEQ/100ML 100 ML IV PRN (09:06)
[2021-09-18] MEDS: BALSAM PERU/CASTOR OIL 60 GM TUBE TP SCH (21:00)
[2021-09-18] MEDS: MORPHINE 2 MG SYG IV PRN (21:38)
[2021-09-19] MEDS: POTASSIUM CHLORIDE 20MEQ/100ML 100 ML IV PRN ×2 (00:46→03:06)
[2021-09-19] MEDS: LIDOCAINE HCL-MPF 1% 2ML VIAL IV PRN ×2 (00:46→03:06)
[2021-09-19] MEDS: LEVOFLOXACIN 500 MG/D5W 100 ML 100 ML IV SCH (03:05)
[2021-09-19 04:02] VITALS: BP 131/68
[2021-09-19] MEDS: NYSTATIN 15 GM POWDER TP SCH ×3 (06:00→22:00)
[2021-09-19 06:29] LABS: HEMATOCRIT 28.1 % (42-54); MEAN CORPUSCULAR HEMOGLOBIN 30.6 pg (27.0-33.0); MEAN CORPUSCULAR HGB CONC 33.1 g/dL (32.0-36.0); MEAN CORPUSCULAR VOLUME 92.4 fL (79-99); NUCLEATED RED BLOOD CELLS 0.5 % (0.0-0.19); RED BLOOD CELL COUNT(AUTO) 3.04 MIL/uL (4.50-6.20); RED CELL DISTRIBUTION WIDTH 16.5 % (11.0-15.5); WHITE BLOOD COUNT (AUTO) 3.7 K/uL (4.8-10.8)
[2021-09-19] MEDS ORDERED: DIATR MEGLU/DIATRIZOATE SODIUM 30 ML BOTTLE ONE (06:34)
[2021-09-19 07:03] LABS: CREATININE 0.5 mg/dL (0.5-1.5); POTASSIUM 3.9 mmol/L (3.5-5.1)
[2021-09-19] MEDS: METRONIDAZOLE 500MG/100ML BAG 100 ML IVPB SCH ×3 (07:47→22:05)
[2021-09-19 08:00] VITALS: BP 118/72
[2021-09-19] MEDS: FAMOTIDINE 20MG VIAL IV SCH (09:33)
[2021-09-19] MEDS: BALSAM PERU/CASTOR OIL 60 GM TUBE TP SCH ×2 (09:34→20:32)
[2021-09-19] MEDS ORDERED: IOHEXOL-350 75 ML VIAL IV ONE (10:03)
[2021-09-19 12:00] VITALS: BP 126/64
[2021-09-19] MEDS: OCTREOTIDE ACETATE 100 MCG/ML AMP IV SCH ×2 (14:00→18:49)
[2021-09-19 16:00] VITALS: BP 131/72
[2021-09-19] MEDS: 0.9%NACL 1000ML 1,000 ML IV SCH (17:26)
[2021-09-19 20:00] VITALS: BP 139/83
[2021-09-19] MEDS: MORPHINE 2 MG SYG IV PRN (22:06)
[2021-09-20] VITALS: BP 136/78
[2021-09-20] MEDS: LEVOFLOXACIN 500 MG/D5W 100 ML 100 ML IV SCH (03:01)
[2021-09-20 04:00] VITALS: BP 124/85
[2021-09-20] MEDS: METRONIDAZOLE 500MG/100ML BAG 100 ML IVPB SCH ×3 (05:53→21:15)
[2021-09-20] MEDS: OCTREOTIDE ACETATE 100 MCG/ML AMP IV SCH ×3 (05:53→21:15)
[2021-09-20] MEDS: NYSTATIN 15 GM POWDER TP SCH ×3 (05:53→21:14)
[2021-09-20] MEDS: 0.9%NACL 1000ML 1,000 ML IV SCH ×2 (07:51→21:40)
[2021-09-20 08:00] VITALS: BP 136/64
[2021-09-20] MEDS: BALSAM PERU/CASTOR OIL 60 GM TUBE TP SCH ×2 (08:17→21:00)
[2021-09-20] MEDS: FAMOTIDINE 20MG VIAL IV SCH (08:17)
[2021-09-20 11:53] VITALS: BP 143/72
[2021-09-20 16:00] VITALS: BP 140/70
[2021-09-20 20:00] VITALS: BP 133/77
[2021-09-21] VITALS: BP 136/70
[2021-09-21] MEDS: MORPHINE 2 MG SYG IV PRN (01:19)
[2021-09-21] MEDS: LEVOFLOXACIN 500 MG/D5W 100 ML 100 ML IV SCH (02:18)
[2021-09-21 04:00] VITALS: BP 133/70
[2021-09-21 04:42] LABS: MEAN CORPUSCULAR HEMOGLOBIN 30.9 pg (27.0-33.0); MEAN CORPUSCULAR HGB CONC 32.9 g/dL (32.0-36.0); PLATELET COUNT (AUTO) 182 K/uL (130-400); RED BLOOD CELL COUNT(AUTO) 2.98 MIL/uL (4.50-6.20); RED CELL DISTRIBUTION WIDTH 15.4 % (11.0-15.5); WHITE BLOOD COUNT (AUTO) 2.8 K/uL (4.8-10.8)
[2021-09-21 05:10] LABS: CREATININE 0.5 mg/dL (0.5-1.5); MAGNESIUM 1.7 mg/dL (1.80-2.40); PHOSPHORUS 2.9 mg/dL (2.5-4.9); POTASSIUM 3.5 mmol/L (3.5-5.1)
[2021-09-21] MEDS: NYSTATIN 15 GM POWDER TP SCH ×3 (05:22→21:09)
[2021-09-21] MEDS: METRONIDAZOLE 500MG/100ML BAG 100 ML IVPB SCH ×3 (05:22→21:10)
[2021-09-21] MEDS: OCTREOTIDE ACETATE 100 MCG/ML AMP IV SCH ×3 (05:22→21:10)
[2021-09-21] MEDS: 0.9%NACL 1000ML 1,000 ML IV SCH (05:27)
[2021-09-21 06:16] LABS: BAND NEUTROPHILS % (MANUAL) 2 % (0-2); EOSINOPHILS % (MANUAL) 3 % (1-6); LYMPHOCYTES % (MANUAL) 39 % (22-44); MONOCYTES % (MANUAL) 1 % (2-9); SEGMENTED NEUTROPHILS % 55 % (40-70)
[2021-09-21 06:17] LABS: MAN.DIFF COMMENT-IMPRESSION MANUAL DIF; PLATELET MORPHOLOGY COMMENT ADEQUATE
[2021-09-21 08:00] VITALS: BP 118/67
[2021-09-21] MEDS: BALSAM PERU/CASTOR OIL 60 GM TUBE TP SCH ×2 (08:50→21:00)
[2021-09-21] MEDS: FAMOTIDINE 20MG VIAL IV SCH (08:50)
[2021-09-21 12:00] VITALS: BP 139/71
[2021-09-21] MEDS ORDERED: ALBUMIN (HUMAN) 25% 100 ML IV PRN (15:30)
[2021-09-21 16:00] VITALS: BP 139/79
[2021-09-21 20:00] VITALS: BP 133/78
[2021-09-21] MEDS ORDERED: MIDODRINE HCL 5 MG TABLET PO SCH (21:00)
[2021-09-22] VITALS: BP 137/74
[2021-09-22] MEDS: 0.9%NACL 1000ML 1,000 ML IV SCH ×2 (00:19→13:50)
[2021-09-22] MEDS: LEVOFLOXACIN 500 MG/D5W 100 ML 100 ML IV SCH (02:38)
[2021-09-22 04:00] VITALS: BP 134/77
[2021-09-22] MEDS: NYSTATIN 15 GM POWDER TP SCH ×3 (05:30→22:19)
[2021-09-22] MEDS: METRONIDAZOLE 500MG/100ML BAG 100 ML IVPB SCH ×2 (05:30→13:50)
[2021-09-22] MEDS: OCTREOTIDE ACETATE 100 MCG/ML AMP IV SCH ×3 (05:30→22:15)
[2021-09-22 05:35] LABS: BASOPHILS % (AUTO) 0.8 % (0.0-5.0); EOSINOPHILS % (AUTO) 2.8 % (0.0-8.0); HEMATOCRIT 29.1 % (42-54); MEAN CORPUSCULAR HEMOGLOBIN 30.7 pg (27.0-33.0); MONOCYTES % (AUTO) 8.5 % (3.0-13.0); NEUTROPHILS % (AUTO) 50.1 % (40.0-77.0); PLATELET COUNT (AUTO) 149 K/uL (130-400); RED BLOOD CELL COUNT(AUTO) 3.03 MIL/uL (4.50-6.20); WHITE BLOOD COUNT (AUTO) 2.5 K/uL (4.8-10.8)
[2021-09-22 06:28] LABS: BASOPHILS % (MANUAL) 1 % (0-2); EOSINOPHILS % (MANUAL) 2 % (1-6); LYMPHOCYTES % (MANUAL) 34 % (22-44); MONOCYTES % (MANUAL) 1 % (2-9); SEGMENTED NEUTROPHILS % 62 % (40-70)
[2021-09-22 06:29] LABS: MAN.DIFF COMMENT-IMPRESSION MANUAL DIFFERENTIAL
[2021-09-22 06:30] LABS: PLATELET MORPHOLOGY COMMENT ADEQUATE
[2021-09-22 07:05] VITALS: BP 132/76
[2021-09-22] MEDS: FAMOTIDINE 20MG VIAL IV SCH (09:01)
[2021-09-22] MEDS: BALSAM PERU/CASTOR OIL 60 GM TUBE TP SCH ×2 (09:08→22:19)
[2021-09-22 11:05] VITALS: BP 144/77
[2021-09-22 15:05] VITALS: BP 130/67
[2021-09-22] MEDS: CLINDAMYCIN IVPB 600MG/50ML 50 ML IV SCH ×2 (15:26→22:15)
[2021-09-22 22:02] VITALS: BP 125/69
[2021-09-22] MEDS ORDERED: MAGNESIUM 2GM PREMIX 50ML 50 ML IV PRN (23:30)
[2021-09-23] MEDS: 0.9%NACL 1000ML 1,000 ML IV SCH (03:15)
[2021-09-23 04:00] VITALS: BP 138/73
[2021-09-23] MEDS: NYSTATIN 15 GM POWDER TP SCH ×2 (05:06→14:50)
[2021-09-23] MEDS: OCTREOTIDE ACETATE 100 MCG/ML AMP IV SCH ×2 (05:09→14:00)
[2021-09-23] MEDS: CLINDAMYCIN IVPB 600MG/50ML 50 ML IV SCH ×2 (06:25→14:49)
[2021-09-23 08:00] VITALS: BP 135/87
[2021-09-23] MEDS ORDERED: VANCOMYCIN 1G/250ML KIT 250 ML IV SCH (09:00)
[2021-09-23] MEDS ORDERED: VANCOMYCIN PROTOCOL PER PHARMACY IV SCH (09:00)
[2021-09-23] MEDS ORDERED: 0.9% NACL 250ML 250 ML ONE (09:07)
[2021-09-23 09:11] LABS: MEAN CORPUSCULAR HEMOGLOBIN 30.5 pg (27.0-33.0); MEAN CORPUSCULAR HGB CONC 31.7 g/dL (32.0-36.0); PLATELET COUNT (AUTO) 125 K/uL (130-400); RED BLOOD CELL COUNT(AUTO) 3.02 MIL/uL (4.50-6.20); RED CELL DISTRIBUTION WIDTH 15.1 % (11.0-15.5); WHITE BLOOD COUNT (AUTO) 2.5 K/uL (4.8-10.8)
[2021-09-23] MEDS: FAMOTIDINE 20MG VIAL IV SCH (09:14)
[2021-09-23 09:15] LABS: CREATININE 0.6 mg/dL (0.5-1.5); POTASSIUM 3.3 mmol/L (3.5-5.1)
[2021-09-23] MEDS: BALSAM PERU/CASTOR OIL 60 GM TUBE TP SCH (09:15)
[2021-09-23 11:35] LABS: BAND NEUTROPHILS % (MANUAL) 4 % (0-2); EOSINOPHILS % (MANUAL) 4 % (1-6); LYMPHOCYTES % (MANUAL) 26 % (22-44); MAN.DIFF COMMENT-IMPRESSION MANUAL DIFFERENTIAL; MONOCYTES % (MANUAL) 4 % (2-9); PLATELET MORPHOLOGY COMMENT SLIGHTLY DECREASED; SEGMENTED NEUTROPHILS % 62 % (40-70)
[2021-09-23 12:00] VITALS: BP 117/77
[2021-09-23] MEDS ORDERED: KCL 20 MEQ ERTAB PO ONE ×2 (16:05→17:00)
[2021-09-24] MEDS ORDERED: VANCOMYCIN 500MG+NS 100ML 100 ML IV SCH (09:00)
== END 2021-09-23 16:30 | DRG 863 ==
LOC: 4BH 01:47
PROVIDERS: ADMIT Internal Medicine; ATTEND Internal Medicine
PROC: 30233N1 Transfusion of Nonautologous Red Blood Cells into Peripheral Vein, Percutaneous Approach (ICD-10-PCS; principal; 2021-09-18)
DX: T81.41XA Infection following a procedure, superficial incisional surgical site, initial encounter (principal); T81.31XA Disruption of external operation (surgical) wound, not elsewhere classified, initial encounter; C18.9 Malignant neoplasm of colon, unspecified; L89.152 Pressure ulcer of sacral region, stage 2; B37.2 Candidiasis of skin and nail; C61 Malignant neoplasm of prostate; Z93.3 Colostomy status; Z20.822 Contact with and (suspected) exposure to COVID-19; Z87.891 Personal history of nicotine dependence; Z85.038 Personal history of other malignant neoplasm of large intestine; Z82.49 Family history of ischemic heart disease and other diseases of the circulatory system; Z90.49 Acquired absence of other specified parts of digestive tract; I10 Essential (primary) hypertension; D46.9 Myelodysplastic syndrome, unspecified; Y83.8 Other surgical procedures as the cause of abnormal reaction of the patient, or of later complication, without mention of misadventure at the time of the procedure; Y92.89 Other specified places as the place of occurrence of the external cause; Z88.0 Allergy status to penicillin
CPT/HCPCS: 36415; 71045; 74177; 80048; 80053; 81003; 83735; 84100; 84132; 85025; 85027; 85610; 85730; 86156; 86850; 86870; 86900; 86901; 86922; 87040; 87070; 87076; 87077; 87186; 87635; 93005; 97039; G0378; J1956; J2270; J2354; J3370; J3475; J3480; J3490; J7030; J7050; P9016; Q9963; Q9967

== ENCOUNTER 2022-05-26 00:41 | Emergency (ER) | payer MEDICARE ==
[~2022-05-26 00:41] MED LIST changes: -AMIT10TA7 PO; -CYCLOBENZAPRINE PO; +FOLI0.4T6 PO; -LACT1CAP65 PO; +MEGE20TA3 PO; -METR-172 PO; +NYST15PO4 TP
[2022-05-26 00:59] VITALS: BP 124/63
[2022-05-26 01:53] LABS: BASOPHILS % (AUTO) 0.6 % (0.0-5.0); EOSINOPHILS % (AUTO) 0.6 % (0.0-8.0); HEMATOCRIT 35.2 % (42-54); LYMPHOCYTES % (AUTO) 18.1 % (21.0-51.0); MEAN CORPUSCULAR HEMOGLOBIN 31.8 pg (27.0-33.0); MEAN CORPUSCULAR HGB CONC 33.2 g/dL (32.0-36.0); MEAN CORPUSCULAR VOLUME 95.7 fL (79-99); MONOCYTES % (AUTO) 6.7 % (3.0-13.0); NEUTROPHILS % (AUTO) 67.8 % (40.0-77.0); NUCLEATED RED BLOOD CELLS 1.9 % (0.0-0.19); PLATELET COUNT (AUTO) 283 K/uL (130-400); RED BLOOD CELL COUNT(AUTO) 3.68 MIL/uL (4.50-6.20); RED CELL DISTRIBUTION WIDTH 21.4 % (11.0-15.5); WHITE BLOOD COUNT (AUTO) 6.5 K/uL (4.8-10.8)
[2022-05-26] MEDS ORDERED: DiphenhydrAMINE HCL 50 MG/ML VIAL IV ONE (02:00)
[2022-05-26] MEDS ORDERED: SOLU-MEDROL 125MG VIAL IVP ONE (02:00)
[2022-05-26 02:03] LABS: INR 1.05 (0.85-1.15); PROTHROMBIN TIME 11.4 SEC (9.6-11.6)
[2022-05-26 02:05] LABS: PARTIAL THROMBOPLASTIN TIME 28.8 SEC (26.3-35.5)
[2022-05-26 02:39] LABS: ALBUMIN 3.3 g/dL (3.5-5.0); CREATININE 0.7 mg/dL (0.5-1.5); POTASSIUM 3.4 mmol/L (3.5-5.1); TOTAL PROTEIN, SERUM 6.8 g/dL (6.0-8.3)
[2022-05-26] MEDS ORDERED: FAMO-136 PO (02:43)
[2022-05-26] MEDS ORDERED: PRED20TA3 PO (02:43)
[2022-05-26] MEDS ORDERED: DIPH50 PO (02:43)
== END 2022-05-26 02:55 | disposition home or self-care (01) ==
LOC: EDH 00:41
DX: L50.6 Contact urticaria (principal); Z85.46 Personal history of malignant neoplasm of prostate; Z88.0 Allergy status to penicillin; Z79.899 Other long term (current) drug therapy; T45.0X5A Adverse effect of antiallergic and antiemetic drugs, initial encounter; Y92.89 Other specified places as the place of occurrence of the external cause
CPT/HCPCS: 99284; 80053; 85025; 85610; 85730; 36415; 96374; 96375; J1200; J2930